=== PATIENT | male | born 1975 | race Caucasian/White ===

== ENCOUNTER 2018-02-11 11:14 | Emergency (ER) | payer BC ==
[~2018-02-11] VITALS: Ht 185.4 cm; Wt 113.0 kg
[~2018-02-11 11:14] MED LIST: HYDR-3419 PO
[2018-02-11 11:17] VITALS: TEMP 36.7; Ht 185.4 cm; Wt 113.0 kg
--- NOTE | 2018-02-11 11:53 | EMERGENCY ROOM VISIT NOTE ---
ED Visit Note First contact with patient: 11:26 CHIEF COMPLAINT: Bleeding varicose vein HISTORY OF PRESENT ILLNESS: This 42-year-old male patient presents to the emergency department, ambulatory, complaining of a bleeding varicose vein on his left vargas. Last night, the patient states he was sitting in the back of a car watching a baseball game when he scratched the vein open. He states there is a significant amount of bleeding which shot across a field. The patient was seen by urgent care at that time where a pressure bandage was applied and he was discharged home. The patient states the bleeding did stop, however after showering this morning, the wound opened back up and he noted another significant amount of bleeding. The patient states the bleeding has stopped with another pressure bandage, but he is concerned due to the bleeding. He denies any lightheadedness, dizziness, chest pain, leg pain, weakness, discoloration, numbness or tingling, or other concerning symptoms. REVIEW OF SYSTEMS: A 6 system review of systems was performed with positives and pertinent negatives listed in the history of present illness. All other systems were reviewed and are negative. ALLERGIES: Sulfa MEDICATIONS: None PMH: None SOCIAL HISTORY: The patient lives locally with family. He denies drug, alcohol , tobacco use. PHYSICAL EXAM: VITALS: Vitals are noted on the nurse's note and reviewed by myself. Vital signs stable. GENERAL: This is a 42-year-old white male, in no acute distress, nondiaphoretic , well-developed well-nourished. SKIN: Varicose vein on the anterior left vargas with no active bleeding. There is a small scab over the area which the patient reports was opened previously. No bruising, discoloration, numbness, or tingling. Otherwise, no edema, bleeding, excoriations, or other abnormal skin findings. EMERGENCY DEPARTMENT COURSE: The patient was seen and evaluated as above. There is no active bleeding at this time. I discussed with the patient proper management including a pressure bandage if rebleeding. He was encouraged to come back to the emergency department if he is unable to get the bleeding to stop on his own. Advised him that on occasion we will use a suture to ligate the bleeding vessel. The patient verbalized agreement and understanding. The wound was bandaged and I encouraged him to keep it dry for the next 2-3 days. He was advised to follow-up with his PCP and consider referral to a vascular surgeon for further management. I attest that I have personally reviewed the patient's current medication list. Patient was found to have normal blood pressure on screening and does not require follow-up. Differential diagnosis includes hemorrhage, varicose vein, laceration, contusion , fracture, sprain/strain, tendon or ligament injury, neurovascular compromise, foreign body, assault, and others DIAGNOSIS: Bleeding varicose vein The chart was completed utilizing [employer] voice recognition software. Grammatical errors, random word insertions, pronoun errors, and incomplete sentences are an occasional consequence of this system due to software limitations, ambient noise, and hardware issues. Any formal questions or concerns about the content, text, or information contained within the body of this dictation should be directly addressed to the provider for clarification. Current/Historical Medications No Active Prescriptions or Reported Meds Allergies Coded Allergies: Sulfa Drugs (Unverified Allergy, Mild, ?, 02/11/18) Vital Signs Date Time Temp Pulse Resp B/P (MAP) Pulse Ox O2 Delivery O2 Flow Rate FiO2 02/11/18 11:57 81 16 143/95 98 02/11/18 11:17 36.7 100 20 150/96 99 Room Air Departure Information Impression Primary Impression: Bleeding from varicose veins of left lower extremity Dispostion Home / Self-Care Condition GOOD Prescriptions No Active Prescriptions or Reported Meds Referrals No Doctor, Assigned (PCP) Patient Instructions ED Veins Varicose, [facility] Additional Instructions You were seen in the emergency room today for a bleeding varicose vein. As discussed, this was not bleeding at the time of your visit. Avoid getting the wound wet for the next 2-3 days. If the wound does re-bleed, cover with a compression bandage and apply direct pressure and ice for 20 minutes. If the bleeding does not stop, return to the ED. Follow-up with your PCP in 2-3 days for re-evaluation and further management of the varicose veins. They may be able to recommend a vascular specialist if you continue to have ongoing problems/bleeding of the veins.
[2018-02-11 11:57] VITALS: BP 143/95; PULSE 81; O2SAT 98
== END 2018-02-11 11:58 | disposition home or self-care (01) ==
LOC: C.EDB 11:16 → C.EDD 11:58
DX: I83.892 Varicose veins of left lower extremity with other complications (principal)